=== PATIENT | female | born 1940 | race Caucasian/White ===

== ENCOUNTER 2020-02-29 11:12 | Outpatient (CLI) | payer OTHER ==
[~2020-02-29 11:12] MED LIST: ATENOLOL25 MG PO; CARDURA8 MG
== END 2020-02-29 13:00 | disposition home or self-care (01) ==
LOC: OFIC 805 11:12
PROVIDERS: ATTEND Otolaryngology
DX: H90.3 Sensorineural hearing loss, bilateral (principal); R42 Dizziness and giddiness; H61.23 Impacted cerumen, bilateral

== ENCOUNTER 2020-03-13 09:43 | Outpatient (CLI) | payer OTHER | END 2020-03-13 10:15 | disposition home or self-care (01) | LOC: OFIC 805 09:43 | PROVIDERS: ATTEND Otolaryngology | DX: H90.3 Sensorineural hearing loss, bilateral (principal); R42 Dizziness and giddiness; H61.23 Impacted cerumen, bilateral ==

== ENCOUNTER 2020-05-04 12:35 | Outpatient (CLI) | payer OTHER | END 2020-05-04 13:23 | disposition home or self-care (01) | LOC: OFIC 805 12:35 | PROVIDERS: ATTEND Otolaryngology | DX: R13.19 Other dysphagia (principal); H91.8X3 Other specified hearing loss, bilateral ==

== ENCOUNTER → 2020-05-20 | Outpatient (CLI) | payer OTHER | END | disposition home or self-care (01) | LOC: RX STUDY 09:06 | PROVIDERS: ATTEND Otolaryngology | DX: K21.9 Gastro-esophageal reflux disease without esophagitis (principal); R13.19 Other dysphagia ==

== ENCOUNTER → 2020-06-24 | Outpatient (CLI) | payer OTHER | END | disposition home or self-care (01) | LOC: OFIC 805 10:01 | PROVIDERS: ATTEND Otolaryngology | DX: K21.9 Gastro-esophageal reflux disease without esophagitis (principal); R13.19 Other dysphagia ==